=== PATIENT | female | born 1955 | race Caucasian/White ===

== ENCOUNTER 2024-01-03 13:33 | Outpatient (CLI) | payer MEDICARE, SELFPAY ==
[2024-01-03 11:23] LABS: Anion Gap 7.2 mmol/L (3-11); CO2 28.8 mmol/L (21.0-32.0); Chloride 102 mmol/L (98-107); Potassium 3.8 mmol/L (3.5-5.1); Sodium 138 mmol/L (136-145)
== END 2024-01-03 13:34 | disposition home or self-care (01) ==
LOC: LBO 13:36
PROVIDERS: PCP Family Medicine; Visit Provider Otolaryngology
DX: H81.01 Meniere's disease, right ear (principal)
CPT/HCPCS: 36415; 80051